=== PATIENT | male | born 1935 | race Caucasian/White ===

== ENCOUNTER 2020-09-26 09:03 | Day surgery (SDC) | payer MEDICARE, OTHER ==
[~2020-09-26] VITALS: Ht 170.2 cm; Wt 110.2 kg
[2020-09-26] VITALS (8 sets, daily range): BP systolic 97–126; BP diastolic 50–84
[2020-09-26] MEDS ORDERED: DULO30CA52 PO (09:48)
[2020-09-26] MEDS ORDERED: TRAZ-251 PO (09:48)
[2020-09-26] MEDS ORDERED: ATOR40TA71 PO (09:48)
[2020-09-26] MEDS ORDERED: EZET10TA48 PO (09:48)
[2020-09-26] MEDS ORDERED: LOSA50TA64 PO (09:48)
[2020-09-26] MEDS ORDERED: GABA300C PO (09:48)
[2020-09-26] MEDS ORDERED: FLO0.4C PO (09:51)
[2020-09-26] MEDS ORDERED: MULT-1085 PO (09:51)
[2020-09-26] MEDS ORDERED: OMEP20CA15 PO (09:51)
[2020-09-26] MEDS ORDERED: ASPI-611 PO (09:51)
[2020-09-26 09:52] LABS: BASOPHILS % (AUTO) 0.5 % (0-1); EOSINOPHILS # (AUTO) 0.1 X10'3 (0-0.9); EOSINOPHILS % (AUTO) 1.9 % (0-6); HEMATOCRIT 44.8 % (42.0-52.0); HEMOGLOBIN 14.9 g/dl (14.0-17.9); LYMPHOCYTES # (AUTO) 0.7 X10'3 (1.1-4.8); LYMPHOCYTES % (AUTO) 12.8 % (21-51); MEAN CORPUSCULAR HEMOGLOBIN 30.1 PG (27.0-31.0); MEAN CORPUSCULAR HGB CONC 33.2 g/dL (33.0-36.5); MEAN CORPUSCULAR VOLUME 90.7 FL (78-98); MEAN PLATELET VOLUME 10.4 FL (7.4-10.4); MONOCYTES # (AUTO) 0.6 X10'3 (0-0.9); MONOCYTES % (AUTO) 10.2 % (2-12); NEUTROPHILS # (AUTO) 4.3 X10'3 (1.8-7.7); NEUTROPHILS % (AUTO) 74.6 % (42-75); PLATELET COUNT 130 X10'3 (140-440); RED BLOOD COUNT 4.93 X10'6 (4.70-6.10); RED CELL DISTRIBUTION WIDTH 14.9 % (11.5-14.5); WHITE BLOOD COUNT 5.8 X10'3 (4.5-11.0)
[2020-09-26] MEDS ORDERED: CARV12.549 PO (09:54)
[2020-09-26] MEDS ORDERED: FINA5TAB11 PO (09:54)
[2020-09-26 10:03] LABS: ALBUMIN 3.6 G/DL (3.4-5.0); ANION GAP 10 (8-16); BLOOD UREA NITROGEN 16 MG/DL (7-18); CALCIUM 8.7 MG/DL (8.5-10.1); CHLORIDE 105 MMOL/L (99-107); CREATININE 0.94 MG/DL (0.60-1.10); GLUCOSE 113 MG/DL (70-104); MAGNESIUM 1.8 MG/DL (1.5-2.4); SODIUM 143 MMOL/L (135-145); TOTAL CARBON DIOXIDE 28.4 MMOL/L (24-32); eGFR 77 ML/MIN
[2020-09-26] MEDS ORDERED: fentaNYL/PF 50MCG/1 ML 2ML syringe ONE (10:54)
[2020-09-26] MEDS ORDERED: heparin 1,000unit/ml 10ml vial 10 ML ONE (10:54)
[2020-09-26] MEDS ORDERED: nitroGLYCERIN-Tridil 50MG/D5W 250 ML IV ONE (10:54)
[2020-09-26] MEDS ORDERED: LIDOcaine 1% (10mg/ml)w/preservative injection 20ml MDV ONE (10:54)
[2020-09-26] MEDS ORDERED: midazolam 2 mg/2 ml injection ONE ×2 (10:54→11:23)
[2020-09-26] MEDS ORDERED: iohexol 350 MG/ML 50ML vial IV ONE (10:54)
[2020-09-26] MEDS ORDERED: iohexol 350MG/ML 100ml bottle IV ONE ×2 (10:55→12:04)
[2020-09-26] MEDS ORDERED: verapamil 2.5 mg/ml inj IV ONE (10:57)
[2020-09-26] MEDS ORDERED: proCHLORperazine 10 MG/2 ml inj IV PRN (13:10)
[2020-09-26] MEDS ORDERED: HYDROcodone/acetaminophen 10/325mg tab PO PRN (13:10)
[2020-09-26] MEDS ORDERED: ondansetron/PF 4mg/2ml inj IV PRN (13:10)
[2020-09-26] MEDS ORDERED: HYDROcodone/acetaminophen 5mg/325mg tablet PO PRN (13:10)
[2020-09-26] MEDS ORDERED: normal saline 1000ml 1,000 ML IV ONE (13:15)
== END 2020-09-26 16:00 | disposition home or self-care (01) ==
LOC: SSTAY O 09:03
PROVIDERS: ATTEND Internal Medicine Cardiovascular Disease
DX: I35.0 Nonrheumatic aortic (valve) stenosis (principal); I25.10 Atherosclerotic heart disease of native coronary artery without angina pectoris; I25.82 Chronic total occlusion of coronary artery; I27.20 Pulmonary hypertension, unspecified; I45.2 Bifascicular block; D47.2 Monoclonal gammopathy; G47.33 Obstructive sleep apnea (adult) (pediatric); K21.9 Gastro-esophageal reflux disease without esophagitis; E78.5 Hyperlipidemia, unspecified; I10 Essential (primary) hypertension; G62.9 Polyneuropathy, unspecified; M19.90 Unspecified osteoarthritis, unspecified site; Z95.1 Presence of aortocoronary bypass graft; Z85.6 Personal history of leukemia; Z90.49 Acquired absence of other specified parts of digestive tract; Z79.899 Other long term (current) drug therapy; Z98.890 Other specified postprocedural states; Z82.49 Family history of ischemic heart disease and other diseases of the circulatory system
CPT/HCPCS: 36415; 80048; 83735; 85025; 85610; 93005; 93461; 99152; 99153; C1760; C1769; C1894; J1644; J2001; J2250; J3010; Q9967; A4620; A6258; C1751; J3490

== ENCOUNTER 2020-11-07 07:58 | Outpatient (CLI) | payer MEDICARE, OTHER ==
[~2020-11-07 07:58] MED LIST: ASPI-611 PO; ATOR40TA71 PO; CARV12.549 PO; DULO30CA52 PO; EZET10TA48 PO; FINA5TAB11 PO; FLO0.4C PO; GABA300C PO; LOSA50TA64 PO; MULT-1085 PO; OMEP20CA15 PO; TRAZ-251 PO
[2020-11-07 08:48] LABS: BASOPHILS % (AUTO) 0.4 % (0-1); EOSINOPHILS # (AUTO) 0.1 X10'3 (0-0.9); EOSINOPHILS % (AUTO) 1.8 % (0-6); HEMOGLOBIN 13.8 g/dl (14.0-17.9); LYMPHOCYTES # (AUTO) 0.9 X10'3 (1.1-4.8); LYMPHOCYTES % (AUTO) 13.7 % (21-51); MEAN CORPUSCULAR HEMOGLOBIN 30.3 PG (27.0-31.0); MEAN CORPUSCULAR HGB CONC 32.9 g/dL (33.0-36.5); MEAN CORPUSCULAR VOLUME 92.1 FL (78-98); MEAN PLATELET VOLUME 10.4 FL (7.4-10.4); MONOCYTES # (AUTO) 0.7 X10'3 (0-0.9); MONOCYTES % (AUTO) 11.1 % (2-12); NEUTROPHILS # (AUTO) 4.9 X10'3 (1.8-7.7); PLATELET COUNT 137 X10'3 (140-440); RED BLOOD COUNT 4.56 X10'6 (4.70-6.10); RED CELL DISTRIBUTION WIDTH 16.1 % (11.5-14.5); WHITE BLOOD COUNT 6.7 X10'3 (4.5-11.0)
[2020-11-07 09:10] LABS: ALANINE AMINOTRANSFERASE 36 U/L (12-78); ALBUMIN 3.7 G/DL (3.4-5.0); ALBUMIN/GLOBULIN RATIO 1.1 (1.1-1.5); ALKALINE PHOSPHATASE 49 IU/L (46-116); ANION GAP 6 (8-16); ASPARTATE AMINO TRANSFERASE 26 U/L (10-37); BILIRUBIN,TOTAL 0.9 MG/DL (0.1-1.0); BLOOD UREA NITROGEN 19 MG/DL (7-18); BUN/CREATININE RATIO 18.4 (5.4-32.0); CALCIUM 9.3 MG/DL (8.5-10.1); CHLORIDE 104 MMOL/L (99-107); CREATININE 1.03 MG/DL (0.60-1.10); POTASSIUM 4.3 MMOL/L (3.5-5.1); SODIUM 142 MMOL/L (135-145); TOTAL CARBON DIOXIDE 31.7 MMOL/L (24-32); eGFR 69 ML/MIN
[2020-11-07] MEDS ORDERED: IODIXANOL 320 MG/ML INFUS..BTL 50ML IV ONE (09:14)
[2020-11-07 09:15] LABS: GLUCOSE 116 MG/DL (70-104)
[2020-11-07] MEDS ORDERED: IODIXANOL 320 MG/ML INFUS..BTL 100ML IV ONE (09:15)
[2020-11-07 09:29] LABS: PARTIAL THROMBOPLASTIN TIME 24 SECONDS (22-32)
== END 2020-11-07 23:59 | disposition home or self-care (01) ==
LOC: RT 07:58
PROVIDERS: ATTEND Internal Medicine Cardiovascular Disease
DX: I71.4 Abdominal aortic aneurysm, without rupture (principal); K42.9 Umbilical hernia without obstruction or gangrene; N40.0 Benign prostatic hyperplasia without lower urinary tract symptoms; K57.30 Diverticulosis of large intestine without perforation or abscess without bleeding; N28.1 Cyst of kidney, acquired; I70.0 Atherosclerosis of aorta; I70.8 Atherosclerosis of other arteries; I25.10 Atherosclerotic heart disease of native coronary artery without angina pectoris; M95.4 Acquired deformity of chest and rib; M47.819 Spondylosis without myelopathy or radiculopathy, site unspecified; J98.4 Other disorders of lung; E04.2 Nontoxic multinodular goiter; J98.11 Atelectasis; I65.23 Occlusion and stenosis of bilateral carotid arteries; M19.011 Primary osteoarthritis, right shoulder; M19.012 Primary osteoarthritis, left shoulder; J44.9 Chronic obstructive pulmonary disease, unspecified; I08.3 Combined rheumatic disorders of mitral, aortic and tricuspid valves; Z20.822 Contact with and (suspected) exposure to COVID-19; Z90.49 Acquired absence of other specified parts of digestive tract
CPT/HCPCS: 36415; 71046; 71275; 74174; 76937; 80053; 85025; 85610; 85730; 93306; 93880; 94010; 94727; 94729; Q9967; U0003